=== PATIENT | female | born 1985 | race Caucasian/White ===

== ENCOUNTER 2024-04-18 19:03 | Inpatient (IN) ==
[2024-04-18] MEDS ORDERED: OXYTOCIN 30 UNITS/NSS 30 UNITS/500 ML BAG IV PRN (19:54)
[2024-04-18] MEDS ORDERED: LIDOCAINE 1% LOCAL 20 ML VIAL INFIL PRN (19:54)
[2024-04-18] MEDS ORDERED: VANCOMYCIN CONSULT ACTIVE PRN (20:02)
--- NOTE | 2024-04-18 20:05 | History & Physical Report ---
Date of Service April 18, 2024 Assessment & Plan (1) resulting from in-vitro fertilization: Plan: Admit to L&D. EFM/toco. Labs. Initial BPs elevated on arrival - will obtain CMP and protein/creatinine ratio to evaluate for preeclampsia - she is asymptomatic. Vancomycin for GBS prophylaxis (Penicillin allergy, Cephalosporin anaphylaxis, Clindamycin IV shortage). 2g initial loading dose, then 1g Q12h until delivery. Hourly blood sugar checks. OK for epidural when she desires. History of Present Illness Chief Complaint: labor Primary Care Provider: Rodney Cannon 39yo @ 40 05/21, contractions worsening throughout the day. No leaking fluid. + movement. Has had some bloody discharge. IVF/ICSI - Transfer from [facility] at 9w5d * Echo - 12/25 WNL *Growth US Q4wks @28wks *Weekly NSTs @36wks *Weekly LAXMI's @36wks(ICSI only) - ASA 81mg at 12w AMA *Weekly NST's @ 36 wks GBS carrier * treat in labor Hepatitis B Non Immune *Recommend Hep B Vaccine--> will plan for pp with her pcp GDM w/16wk glucola *Begin monthly Growth US's @24wks Allergies Allergy/AdvReac Type Severity Reaction Status Date / Time Penicillins Allergy Intermediate Hives Verified 04/18/24 19:16 gentamicin Allergy Mild Rash Verified 04/18/24 19:16 Latex, Natural Rubber AdvReac Rash Verified 04/18/24 19:56 cephalexin Allergy Severe Anaphylaxis Uncoded 04/16/24 10:55 contrast dye Allergy Severe Swelling Uncoded 04/16/24 10:55 of Lip/Tongue/Throat Home Medications Medication Instructions Recorded Confirmed Type [id number] 1 tab PO DAILYBB 09/18/23 04/18/24 History [ Plus] aspirin 81 mg chewable tablet 81 mg PO DAILY 10/19/23 04/18/24 History acetone (urine) test (Ketone Urine #50 ea 11/24/23 04/16/24 Rx Test strips) blood sugar diagnostic (OneTouch #150 ea 11/24/23 04/16/24 Rx Verio test strips) blood-glucose meter (OneTouch #1 ea 11/24/23 04/16/24 Rx Verio Reflect Meter) lancets 33 gauge (OneTouch Delica #150 ea 11/24/23 04/16/24 Rx Plus Lancet) breast pump #1 ea 01/25/24 04/16/24 Rx Patient History Medical History Anxiety Varicella vaccination Endometriosis Interstitial cystitis Surgical History S/P cystoscopy S/P laparoscopy Hx of dilation and curettage S/P nasal septoplasty S/P wisdom tooth extraction Status post colposcopy Family History Mother Breast cancer Grandmother (Maternal) Dementia Father Dementia Myocardial infarction [place] x2 Grandfather (Maternal) Myocardial infarction Grandfather (Paternal) Heart disease Denies family history of Ovarian cancer Colorectal cancer Social History Smoking Status: Never smoker Do You Dip or Chew Tobacco: No; Hx Alcohol Use: No Hx Substance Use: No Preferred Language: Spanish Communication Ability: Effective Head Nurse Required: No Beliefs That Will Affect Care: None marital status: marital status details: Glen Prakash (43) [phone] Current Living Situation: Spouse Current Living Situation Comment: house with current occupational status: employed current occupation: [employer] Other Information That Helps Us Care for You: No Feels Safe at Home: Yes Safety Concerns: Feels Safe At This Time Review of Systems All systems reviewed & are unremarkable except as noted in HPI & below Physical Exam Physical Exam: FHT Cat 1 [place] Q 2-4 - difficult to trace, but palpable on abdominal exam SVE 3/100/-1 Constitutional: WD/WN, vitals as above Respiratory: normal respiratory effort, lungs clear to auscultation no respiratory distress Cardiovascular: Rate/Rhythm: regular rate and regular rhythm Gastrointestinal (Abdomen): Inspection/Auscultation: abdomen normal to inspection Percussion/Palpation: abdomen soft; abdomen nontender Gravid. No s/s chorio or abruption. Skin: no rashes, warm and dry Psychiatric: A+Ox3, euthymic affect Results & Data Vital Signs (Past 12 Hours) Vital Signs Temp Pulse Resp BP O2 Del Method 04/18/24 19:37 81 155/95 H 04/18/24 19:23 59 L 178/95 H 04/18/24 19:19 36.7 C 18 Room Air Coding Level of Care Code None Diagnoses resulting from in-vitro fertilization O09.819
[2024-04-18] MEDS ORDERED: SODIUM CHLORIDE 0.9% 50 ML BAG IV ONE (20:23)
[2024-04-18 20:31] LABS: Hematocrit (blood only) 41.8 % (37.0-47.0); Hemoglobin 14.5 g/dl (12.0-16.0); Mean Corpuscular Hemoglobin 31.3 pg (25.0-34.0); Mean Corpuscular Hgb Conc 34.7 g/dL (32.0-36.0); Mean Corpuscular Volume 90.3 fL (80.0-100.0); Mean Platelet Volume 13.2 fL (9.4-12.4); Platelet Count 166 K/uL (130-400); RDW Coefficient of Variation 13.4 % (11.5-14.5); Red Blood Count 4.63 M/uL (4.20-5.40); White Blood Count 12.41 K/ul (4.8-10.8)
[2024-04-18] MEDS: SODIUM CHLORIDE 0.9% 1,000 ML IV SCH (20:35)
[2024-04-18 20:44] LABS: Albumin Globulin Ratio 1.1 (0.9-2); Albumin Level 3.3 gm/dl (3.4-5.0); Bilirubin,Total 0.5 mg/dl (0.2-1.0); Calcium 9.2 mg/dl (8.6-10.3); Creatinine Clr Calc Pharmacy 113.8 ml/min; Potassium 4.4 mmol/L (3.5-5.1); Total Protein 6.3 gm/dl (6.0-8.3)
[2024-04-18] MEDS ORDERED: NALOXONE HCL 0.4 MG/1 ML VIAL/CARP IV PRN (20:48)
[2024-04-18] MEDS ORDERED: ePHEDrine sulfate 50 MG/ML AMP IV PRN (20:48)
[2024-04-18] MEDS: VANCOMYCIN HCL 2,000 MG in SODIUM CHLORIDE 0.9% 500 ML IV ONE (20:48)
[2024-04-18] MEDS ORDERED: fentaNYL citrate PF 100 MCG/2 ML VIAL EPI PRN (20:48)
[2024-04-18] MEDS ORDERED: NALBUPHINE HCL INJ 10 MG/ML AMP IV PRN (20:48)
[2024-04-18] MEDS ORDERED: SODIUM CHLORIDE 0.9% PF INJ 10 ML VIAL EPI PRN (20:48)
[2024-04-18] MEDS ORDERED: BUPIVACAINE 0.25% PF 30 ML VIAL EPI PRN (20:48)
[2024-04-18] MEDS ORDERED: NALOXONE HCL 1 MG in SODIUM CHLORIDE 0.9% 1,000 ML IV PRN (20:48)
[2024-04-18] MEDS ORDERED: LIDOCAINE 2% MPF LOCAL 5 ML VIAL EPI PRN (20:48)
[2024-04-18] MEDS ORDERED: diphenhydrAMINE 50 MG/ML VIAL IV PRN (20:48)
[2024-04-18] MEDS ORDERED: ROPIVACAINE 0.5% PF 5 MG/ML 20 ML VIAL EPI PRN (20:48)
--- NOTE | 2024-04-18 20:51 | Anesthesiology Consultation ---
Date of Service April 18, 2024 Assessment & Plan Chart Review Chart Review: Patient NOT seen in Pre Admission Testing and Acceptable Risk for Labor Epidural Consults Requested none ASA ASA2 Proposed Anesthesia Anesthesia Type: Labor Epidural Risk / Benefits Reviewed With: PT / POA / Parent / Guardian, Accepts Plan and Informed Consent Obtained History Height/Weight Height: 5 ft 3 in Weight: 71.668 kg Allergies Allergy/AdvReac Type Severity Reaction Status Date / Time Penicillins Allergy Intermediate Hives Verified 04/18/24 19:16 gentamicin Allergy Mild Rash Verified 04/18/24 19:16 Latex, Natural Rubber AdvReac Rash Verified 04/18/24 19:56 cephalexin Allergy Severe Anaphylaxis Uncoded 04/16/24 10:55 contrast dye Allergy Severe Swelling Uncoded 04/16/24 10:55 of Lip/Tongue/Throat Medications Home Medications Medication Instructions Recorded Confirmed Last Taken [id number]-[id number]-[id number]-FA 1 tab PO DAILYBB 09/18/23 04/18/24 04/18/24 [ Plus] aspirin 81 mg chewable tablet 81 mg PO DAILY 10/19/23 04/18/24 04/18/24 acetone (urine) test (Ketone Urine #50 ea 11/24/23 04/16/24 Unknown Test strips) blood sugar diagnostic (OneTouch #150 ea 11/24/23 04/16/24 Unknown Verio test strips) blood-glucose meter (OneTouch #1 ea 11/24/23 04/16/24 Unknown Verio Reflect Meter) lancets 33 gauge (OneTouch Delica #150 ea 11/24/23 04/16/24 Unknown Plus Lancet) breast pump #1 ea 01/25/24 04/16/24 Unknown Active Medications Generic Name Dose Route Start Last Admin Trade Name Freq PRN Reason Stop Dose Admin Vancomycin HCl 2,000 mg/ 540 mls @ 200 mls/hr 04/18/24 20:02 04/18/24 20:48 Sodium Chloride IV 04/18/24 22:43 200 mls/hr NOW ONE Administration Sodium Chloride 1,000 mls @ 50 mls/hr 04/18/24 20:30 04/18/24 21:07 Nss IV 04/19/24 16:29 50 mls/hr .Q20H JUVENCIO Infusion NPO Date Last Intake of Fluids: 04/18/24 Time Last Intake of Fluids: 20:30 Date Last Intake of Solids: 04/18/24 Time Last Intake of Solids: 14:00 Past Medical History Medical History Anxiety Varicella vaccination Endometriosis Interstitial cystitis Exercise / Class Metabolic Activity 1 > 8 Run/Swim/Ski/Tennis Past Family History Family History Mother Breast cancer Grandmother (Maternal) Dementia Father Dementia Myocardial infarction [place] x2 Grandfather (Maternal) Myocardial infarction Grandfather (Paternal) Heart disease Denies family history of Ovarian cancer Colorectal cancer Past Surgical History Surgical History S/P cystoscopy S/P laparoscopy Hx of dilation and curettage S/P nasal septoplasty S/P wisdom tooth extraction Status post colposcopy Past Anesthesia History No Hx of Anesthesia Complications and No Family Hx of Anesthesia Complications History of PONV No Hx of PONV and No Hx of Motion Sickness Social History Smoking Status: Never smoker Do You Dip or Chew Tobacco: No Hx Alcohol Use: No Hx Substance Use: No Review of Systems ROS Unobtainable: All systems reviewed & are unremarkable except as noted in HPI & below Physical Exam Vital Signs Last Vital Signs Temp 36.7 C 04/18/24 19:19 Pulse 81 04/18/24 19:37 Resp 18 04/18/24 19:19 BP 155/95 H 04/18/24 19:37 O2 Del Method Room Air 04/18/24 19:19 ENMT Mouth: no TMJ abnormality Thyromental Distance: > or= 3.5 Finger Breadths Mallampati Class: II Neck normal visual inspection and trachea midline; neck extension not limited Respiratory normal respiratory effort Auscultation: lungs clear to auscultation bilaterally Cardiovascular Rate/Rhythm: regular rate and regular rhythm Heart Sounds: no murmur Musculoskeletal Spine: normal cervical ROM Extremities: full ROM of extremities Neurologic moves all extremities Psychiatric Orientation: alert and oriented x 3 Testing Laboratory Results 04/18/24 20:12 04/18/24 20:12
[2024-04-18] MEDS: fentaNYL citrate PF 100 MCG/2 ML VIAL ONE (21:06)
[2024-04-18] MEDS: LIDOCAINE 2%/EPINEPHRINE 1:200,000 20 ML PF ONE (21:06)
[2024-04-18] MEDS: BUPIVACAINE 0.25% PF 30 ML VIAL ONE (21:06)
[2024-04-18] MEDS: fentANYL 2 MCG/ML BUPIVacaine 0.125%-NSS 100ML BAG ONE (21:08)
[2024-04-18 21:33] LABS: Creatinine Urine Random 185.9 mg/dl; Total Protein Urine Random > 1000.0 mg/dl (0-11.9)
[2024-04-18] MEDS: LIDOCAINE 2%/EPINEPHRINE 1:200,000 20 ML PF EPI STA (21:45)
[2024-04-18] MEDS: ePHEDrine sulfate 50 MG/ML AMP ONE (21:45)
[2024-04-18] MEDS: BUPIVACAINE 0.25% PF 30 ML VIAL EPI STA (21:45)
[2024-04-18] MEDS: fentaNYL citrate PF 100 MCG/2 ML VIAL EPI STA (21:45)
[2024-04-18] MEDS: SODIUM CHLORIDE 0.9% PF INJ 10 ML VIAL ONE (21:45)
[2024-04-18] MEDS: SODIUM CHLORIDE 0.9% PF INJ 10 ML VIAL EPI STA (21:45)
--- NOTE | 2024-04-19 00:24 | Labor Progress Brief Note ---
Date of Service April 19, 2024 Subjective Comfortable with epidural. FHT Cat 1 [place] Q 2 SVE 4/100/-1 AROM clear fluid. Assessment & Plan Admission and Anticipated Discharge Date Admission Date: April 18, 2024 Results & Data Vital Signs (Past 12 Hours) Vital Signs Temp Pulse Resp BP Pulse Ox O2 Del Method 04/19/24 00:19 65 97 04/19/24 00:17 65 147/82 H 04/19/24 00:14 62 97 04/19/24 00:09 64 97 04/19/24 00:04 61 97 04/19/24 00:00 67 18 133/83 04/18/24 23:59 62 98 04/18/24 23:54 62 97 04/18/24 23:49 62 98 04/18/24 23:46 68 137/84 04/18/24 23:44 62 98 04/18/24 23:39 70 99 04/18/24 23:34 83 98 04/18/24 23:31 69 151/84 H 04/18/24 23:30 18 04/18/24 23:30 18 04/18/24 23:29 74 98 04/18/24 23:24 67 99 04/18/24 23:19 67 99 04/18/24 23:16 68 145/89 H 04/18/24 23:14 69 98 04/18/24 23:09 64 99 04/18/24 23:04 91 H 99 04/18/24 23:01 64 145/82 H 04/18/24 23:00 18 04/18/24 23:00 18 04/18/24 22:59 61 99 04/18/24 22:54 66 99 04/18/24 22:49 71 99 04/18/24 22:48 64 138/84 04/18/24 22:44 63 99 04/18/24 22:39 67 99 04/18/24 22:34 76 100 04/18/24 22:33 18 04/18/24 22:33 36.7 C 18 04/18/24 22:31 100 H 124/89 04/18/24 22:30 18 04/18/24 22:30 18 04/18/24 22:29 86 100 04/18/24 22:24 81 100 04/18/24 22:19 84 100 04/18/24 22:16 75 132/91 04/18/24 22:14 100 H 100 04/18/24 22:09 77 99 04/18/24 22:04 78 100 04/18/24 22:01 83 138/94 04/18/24 22:00 18 04/18/24 22:00 18 04/18/24 21:59 83 100 04/18/24 21:54 95 H 98 04/18/24 21:49 90 99 04/18/24 21:47 86 140/91 04/18/24 21:44 92 H 100 04/18/24 21:39 80 99 04/18/24 21:34 96 H 100 04/18/24 21:32 88 140/98 04/18/24 21:29 90 100 04/18/24 21:24 92 H 99 04/18/24 21:19 80 100 04/18/24 21:15 83 139/93 04/18/24 21:14 75 100 04/18/24 21:13 82 142/100 H 04/18/24 21:11 70 144/91 H 04/18/24 21:10 81 143/91 H 04/18/24 21:09 83 100 04/18/24 21:07 70 160/88 H 04/18/24 21:05 79 169/98 H 04/18/24 21:04 69 100 04/18/24 21:03 91 H 180/106 H 04/18/24 21:02 71 200/90 H 04/18/24 20:59 64 99 04/18/24 20:55 60 182/101 H 04/18/24 20:54 62 100 04/18/24 19:37 81 155/95 H 04/18/24 19:23 59 L 178/95 H 04/18/24 19:19 36.7 C 18 Room Air Coding Level of Care Code None
[2024-04-19] MEDS: fentANYL 2 MCG/ML BUPIVacaine 0.125%-NSS 100ML BAG EPI PRN (05:34)
[2024-04-19] MEDS: SODIUM CHLORIDE 0.9% 1,000 ML IV SCH (05:35)
[2024-04-19] MEDS ORDERED: VANCOMYCIN HCL 1,000 MG/270 ML BAG IV PRN (07:00)
[2024-04-19] MEDS: OXYTOCIN 30 UNITS/NSS 30 UNITS/500 ML BAG IV PRN (08:40)
[2024-04-19] MEDS ORDERED: HYDROCORTISONE ACETATE 25 MG SUPP PR PRN (09:04)
[2024-04-19] MEDS ORDERED: bisacodyL 10 MG SUPP PR PRN (09:04)
--- NOTE | 2024-04-19 09:10 | Delivery Summary ---
Vaginal Delivery Summary Date of Service April 19, 2024 Vaginal Delivery Summary and 2nd Degree LAC Vaginal Delivery Summary: Pre-delivery diagnoses: 39yo @ 40 2/7, spontaneous labor, IVF, AMA, GBS+, GDMA1, mild preeclampsia Post-delivery diagnoses: same Procedure: spontaneous vaginal delivery Surgeon: Keli Hickman DO Complications: none Findings: Viable female . Apgars: . Weight pending, please see nursery records Estimated QBL: please see nursing notes. Description of delivery: The patient progressed to complete with epidural anesthesia. She then began to push. She spontaneously vaginally delivered a viable from the cephalic presentation. The head delivered in NITIN position. The anterior shoulder delivered, followed by the posterior shoulder, followed by the body. The baby was placed on mother's abdomen , the cord was doubly clamped and cut. A segment was retained for cord gases. Baby was immediately handed to nursery team. Cry heard on nursery table. Cord blood was obtained. The placenta was delivered spontaneously intact with a 3-vessel cord. The uterus and vagina were swept of clots and debris. IV pitocin was given. The uterus became firm. The cervix, vagina, and perineum were inspected and 2nd degree perineal laceration noted and repaired with 3-0 Vicryl. Excellent hemostasis was observed. The mother and baby are recovering in stable and good condition in the room. Sponge, needle and instrument counts were correct x 2. Keli Hickman DO [facility] Vaginal Delivery Charge Vaginal Delivery Codes: 59616 global code for the antepartum, delivery, and post- Delivery Type Details: and 2nd Degree LAC
[2024-04-19] MEDS ORDERED: NON-FORMULARY MEDICATION (Breast Pump device) SCH (09:16)
[2024-04-19 09:21] LABS: Base Excess Cord Venous Blood -12.1 mEq/L (-7.7-1.9); Cord Venous Blood HCO3 20 mmol/L (18.4-26.8); Cord Venous Blood PCO2 68 mmHg (30.4-57.2); Cord Venous Blood PO2 < 20 mmHg (14.1-43.3); Cord Venous Blood pH 7.07 (7.20-7.44); O2 Saturation Cord Venous Bld < 60.0 % (<68)
[2024-04-19] MEDS: IBUPROFEN 600 MG TAB PO PRN (10:00)
--- NOTE | 2024-04-19 10:41 | Obstetrical Progress Note ---
Date of Service April 19, 2024 Assessment & Plan (1) Preeclampsia: Plan will start procardia xl and monitor bps. ok to move to . Admission and Anticipated Discharge Date Admission Date: April 18, 2024 Subjective informed by nursing that sbp consistently >150 no sx. Physical Exam Constitutional: WD/WN, vitals as above Results & Data Vital Signs (Past 12 Hours) Vital Signs Temp Pulse Resp BP Pulse Ox 04/19/24 10:31 108 H 142/94 H 04/19/24 10:16 107 H 159/95 H 04/19/24 10:01 110 H 156/89 H 04/19/24 10:00 110 H 20 156/89 H 04/19/24 09:46 103 H 153/89 H 04/19/24 09:45 110 H 16 156/89 H 04/19/24 09:31 95 H 156/91 H 04/19/24 09:30 110 H 18 156/89 H 04/19/24 09:16 94 H 157/91 H 04/19/24 09:15 110 H 20 156/89 H 04/19/24 09:00 110 H 20 156/89 H 04/19/24 08:59 93 H 146/88 H 04/19/24 08:54 103 H 97 04/19/24 08:49 107 H 97 04/19/24 08:48 104 H 93 04/19/24 08:44 102 H 93 04/19/24 08:39 102 H 98 04/19/24 08:34 114 H 98 04/19/24 08:29 140 H 97 04/19/24 08:25 118 H 91 04/19/24 08:24 123 H 96 04/19/24 08:19 95 H 97 04/19/24 08:15 18 04/19/24 08:15 18 04/19/24 08:14 135 H 99 04/19/24 08:09 108 H 98 04/19/24 08:04 100 H 98 04/19/24 08:00 18 04/19/24 08:00 18 04/19/24 07:59 91 H 98 04/19/24 07:54 96 H 97 04/19/24 07:49 136 H 99 04/19/24 07:45 86 137/67 04/19/24 07:44 131 H 99 04/19/24 07:39 97 04/19/24 07:39 90 04/19/24 07:39 95 H 89 L 04/19/24 07:34 102 H 99 04/19/24 07:29 105 H 97 04/19/24 07:27 86 141/82 H 04/19/24 07:24 86 97 04/19/24 07:23 98 H 89 L 04/19/24 07:19 85 96 04/19/24 07:15 81 152/83 H 04/19/24 07:14 110 H 94 04/19/24 07:09 86 100 04/19/24 07:05 20 04/19/24 07:05 98.1 F 20 04/19/24 07:04 108 H 99 04/19/24 07:01 74 146/80 H 04/19/24 06:59 98 H 97 04/19/24 06:54 83 100 04/19/24 06:49 104 H 98 04/19/24 06:46 80 153/82 H 04/19/24 06:44 102 H 95 04/19/24 06:39 78 98 04/19/24 06:34 84 97 04/19/24 06:31 74 130/72 04/19/24 06:30 18 04/19/24 06:30 18 04/19/24 06:29 90 99 04/19/24 06:24 76 99 04/19/24 06:19 95 H 98 04/19/24 06:18 18 04/19/24 06:18 98.6 F 18 04/19/24 06:17 76 137/77 04/19/24 06:14 84 99 04/19/24 06:09 78 99 04/19/24 06:04 87 99 04/19/24 06:01 89 129/77 04/19/24 05:59 87 100 04/19/24 05:54 83 99 04/19/24 05:49 79 98 04/19/24 05:47 90 137/75 04/19/24 05:44 87 99 04/19/24 05:39 88 97 04/19/24 05:34 88 97 04/19/24 05:31 94 H 137/93 04/19/24 05:30 20 04/19/24 05:30 20 04/19/24 05:29 97 H 97 04/19/24 05:24 97 H 97 04/19/24 05:19 94 H 97 04/19/24 05:16 95 H 135/94 04/19/24 05:14 85 98 04/19/24 05:09 95 H 97 04/19/24 05:04 82 98 04/19/24 05:03 96 H 144/90 H 04/19/24 05:00 18 04/19/24 05:00 18 04/19/24 04:59 82 97 04/19/24 04:54 86 97 04/19/24 04:49 100 H 96 04/19/24 04:45 90 133/82 04/19/24 04:44 89 98 04/19/24 04:39 82 98 04/19/24 04:34 86 97 04/19/24 04:30 98.4 F 88 18 133/83 04/19/24 04:29 84 98 04/19/24 04:24 82 98 04/19/24 04:19 85 98 04/19/24 04:16 89 135/88 04/19/24 04:14 97 H 96 04/19/24 04:09 79 98 04/19/24 04:04 82 99 04/19/24 04:01 90 138/84 04/19/24 04:00 18 04/19/24 04:00 18 04/19/24 03:59 82 98 04/19/24 03:54 93 H 98 04/19/24 03:49 87 97 04/19/24 03:46 100 H 122/79 04/19/24 03:44 106 H 98 04/19/24 03:39 92 H 98 04/19/24 03:34 84 98 04/19/24 03:30 85 18 148/91 H 04/19/24 03:29 86 97 04/19/24 03:24 80 98 04/19/24 03:19 79 98 04/19/24 03:17 76 135/84 04/19/24 03:14 79 97 04/19/24 03:09 78 97 04/19/24 03:04 77 97 04/19/24 03:02 79 129/85 04/19/24 02:59 78 98 04/19/24 02:54 86 97 04/19/24 02:49 79 98 04/19/24 02:46 76 135/87 12/06/24 02:44 87 97 04/19/24 02:39 89 98 04/19/24 02:34 84 98 04/19/24 02:30 96 H 145/88 H 04/19/24 02:29 98.4 F 94 H 18 97 04/19/24 02:24 75 97 04/19/24 02:19 78 97 04/19/24 02:16 76 146/82 H 04/19/24 02:14 71 97 04/19/24 02:09 76 98 04/19/24 02:04 78 98 04/19/24 02:01 79 134/89 04/19/24 02:00 18 04/19/24 02:00 18 04/19/24 01:59 91 H 98 04/19/24 01:54 67 98 04/19/24 01:49 89 97 04/19/24 01:46 77 124/82 04/19/24 01:44 71 97 04/19/24 01:39 74 98 04/19/24 01:34 77 98 04/19/24 01:32 72 145/90 H 04/19/24 01:30 18 04/19/24 01:30 18 04/19/24 01:29 69 98 04/19/24 01:24 69 97 04/19/24 01:19 68 98 04/19/24 01:16 79 137/87 04/19/24 01:14 74 99 04/19/24 01:09 72 97 04/19/24 01:04 72 99 04/19/24 01:01 67 134/86 04/19/24 01:00 18 04/19/24 01:00 18 04/19/24 00:59 76 98 04/19/24 00:54 66 98 04/19/24 00:49 70 98 04/19/24 00:46 77 147/83 H 04/19/24 00:44 76 98 04/19/24 00:39 77 99 04/19/24 00:34 83 98 04/19/24 00:32 103 H 172/83 H 04/19/24 00:30 18 04/19/24 00:30 98.2 F 18 04/19/24 00:29 77 98 04/19/24 00:24 92 H 99 04/19/24 00:19 65 97 04/19/24 00:17 65 147/82 H 04/19/24 00:14 62 97 04/19/24 00:09 64 97 04/19/24 00:04 61 97 04/19/24 00:00 67 18 133/83 04/18/24 23:59 62 98 04/18/24 23:54 62 97 04/18/24 23:49 62 98 04/18/24 23:46 68 137/84 04/18/24 23:44 62 98 04/18/24 23:39 70 99 04/18/24 23:34 83 98 04/18/24 23:31 69 151/84 H 04/18/24 23:30 18 04/18/24 23:30 18 04/18/24 23:29 74 98 04/18/24 23:24 67 99 04/18/24 23:19 67 99 04/18/24 23:16 68 145/89 H 04/18/24 23:14 69 98 04/18/24 23:09 64 99 04/18/24 23:04 91 H 99 04/18/24 23:01 64 145/82 H 04/18/24 23:00 18 04/18/24 23:00 18 04/18/24 22:59 61 99 04/18/24 22:54 66 99 04/18/24 22:49 71 99 04/18/24 22:48 64 138/84 04/18/24 22:44 63 99 PG Care Time/CCT Total # of Minutes Spent Total Time Spent with Patient: Total time spent is greater than 50% in coordination of care (as documented) at patient's floor/unit and/or counseling patient: Coding Level of Care Code None Diagnoses Preeclampsia O14.90
[2024-04-19] MEDS: BENZOCAINE 20% SPRY 85 APPLN/85 GM CAN EXT PRN (10:42)
[2024-04-19] MEDS: NIFEdipine EXTENDED REL 30 MG TABCR PO STA (11:02)
[2024-04-19] MEDS: ACETAMINOPHEN 325 MG TAB PO PRN (19:03)
[2024-04-19] MEDS: DOCUSATE SODIUM 100 MG CAP PO SCH (21:24)
[2024-04-19] MEDS: DIPHTHER/TETAN/PERTUS Vaccine (Tdap, Adol/Adult) 0.5mL IM ONE (21:26)
--- NOTE | 2024-04-20 06:23 | Obstetrical Progress Note ---
Date of Service April 20, 2024 Assessment & Plan (1) Preeclampsia: (2) Gestational diabetes mellitus (GDM) affecting , antepartum: (3) Encounter for care and examination after delivery: Plan Pt educated regarding pre-eclampsia following delivery. BPs are currently in normal range with medication in setting of ACEVEDO. Will continue to monitor vitals. Continue Nifedipine 30mg PO qam Encourage ambulation Pain medication as needed Encourage breast feeding, product consultant as needed Anticipate DC to home on 04/21/24, pt will need to schedule BP check in office for 04/24/24 as well as 6 week follow up Admission and Anticipated Discharge Date Admission Date: April 18, 2024 Supervising Physician Co-Signing Physician Notes Resident Physician Supervision Note: I was present with Dr. Fair during the history and exam. I discussed the case with the resident and agree with the findings and plan as documented in the note. Any exceptions or clarifications are listed here: stable doing well, breastpumping. baby in INBN. eating, voiding, ambulating. abd soft ff 2 down nt. ext nt calves. bps ok. will cont to match. routine care. Documented By: Vivian Curran MD, FACOG Subjective Pt is 39 yo post- day 1 s/p at 49w1d. complicated by IVF, AMA, and GDM Ambulation:In and out of room Voiding:voiding normally Passing gas: yes BM: no Diet tolerance:regular diet Lochia:bloody, no clots Feeding type: breast with formula supplementation Current pain level: 3 /10 improved with ibuprofen Resting comfortably this morning in NAD. Pt endorses headache this morning as well as bilateral leg and arm muscle cramping. Pt reports her ankle/feet swelling also persists. Denies CP, SOB, N/V/D. Review of Systems Review of Systems: As per HPI Physical Exam Constitutional: WD/WN, vitals as above Respiratory: normal respiratory effort, lungs clear to auscultation Cardiovascular: Rate/Rhythm: regular rate and regular rhythm Heart Sounds: no murmur Extremities: + edema (trace at bilateral ankles and feet) Gastrointestinal (Abdomen): normal bowel sounds, soft, nontender, no hepatosplenomegaly Uterine fundus firm and 1 cm below umbilicus Neurologic: PERRL, EOMI, accommodation nl, no face palsy, no dysarthria Moving all 4 extremities on command Psychiatric: A+Ox3, euthymic affect Results & Data Vital Signs (Past 12 Hours) Vital Signs Temp Pulse Resp BP BP Pulse Ox O2 Del Method 04/20/24 04:15 36.5 C 88 18 117/77 96 Room Air 04/19/24 23:15 36.5 C 80 18 142/86 H 97 Room Air 04/19/24 19:10 36.5 C 80 18 136/86 96 Room Air Resident Activity Tracking Resident Involvement: Resident Care Provided Care Provided: Adult Hospital Medicine
[2024-04-20] MEDS: PRENATAL VITAMIN 1 TAB PO SCH (07:47)
[2024-04-20] MEDS: NIFEdipine EXTENDED REL 30 MG TABCR PO SCH (10:15)
[2024-04-20 20:11] VITALS: RESP 18
[2024-04-20] MEDS: bisacodyL 5 MG TABEC PO SCH (20:17)
[2024-04-20 23:54] VITALS: O2SAT 95
--- NOTE | 2024-04-21 09:08 | Obstetrical Progress Note ---
Date of Service April 21, 2024 Patient doing well. Minimal bleeding, no extremity pain she has no calf tenderness she is tolerating a regular diet she is voiding well she has no depression Assessment & Plan (1) Encounter for care and examination after delivery: meets discharge criteria she did have 1 elevated blood pressure this morning but rapidly came down afterwards she is on nifedipine a prescription will be sent to her pharmacy she is recommended to have a follow-up blood pressu re check midweek reviewed concerning signs and symptoms of preeclampsia Physical Exam Constitutional WD/WN, vitals as above well developed and well nourished Respiratory normal respiratory effort, lungs clear to auscultation normal respiratory effort Cardiovascular RRR, no murmur, no edema Gastrointestinal (Abdomen) normal bowel sounds, soft, nontender, no hepatosplenomegaly Results & Data Vital Signs (Past 12 Hours) Vital Signs Temp Pulse Resp BP Pulse Ox O2 Del Method 04/20/24 23:45 97.7 F 82 18 123/76 95 Room Air
[2024-04-21 09:55] VITALS: PULSE 84; TEMP 97.9
[2024-04-21 09:56] VITALS: BP 137/90
== END 2024-04-21 13:00 | disposition home or self-care (01) | DRG 807 ==
LOC: OPB 19:03 → 4S1 19:04 → 4E2 04-19 11:12